=== PATIENT | male | born 1955 | race Caucasian/White ===

== ENCOUNTER 2025-03-16 06:54 | Day surgery (SDC) | payer OTHER ==
[2025-03-16] MEDS: Ringers Lactate 1,000 ML IV ONE (07:26)
[2025-03-16] MEDS ORDERED: LIDOCAINE 1% MPF 30 ML VIAL ONE (08:03)
[2025-03-16 09:18] VITALS: TEMP 97
[2025-03-16 09:50] VITALS: BP 119/64; O2SAT 99
== END 2025-03-16 09:36 | disposition home or self-care (01) ==
LOC: OR 06:54
PROVIDERS: ATTEND Surgery
PROC: 0DBM8ZX Excision of Descending Colon, Via Natural or Artificial Opening Endoscopic, Diagnostic (ICD-10-PCS; principal; 2025-03-16 08:00)
DX: Z12.11 Encounter for screening for malignant neoplasm of colon (principal); K64.4 Residual hemorrhoidal skin tags; K64.8 Other hemorrhoids; K63.5 Polyp of colon
CPT/HCPCS: 45384; 88305; J2704 ×2; J2003; J7120